=== PATIENT | male | born 1960 | race Caucasian/White ===

== ENCOUNTER → 2018-02-25 | Outpatient (CLI) | payer OTHER ==
[~2018-02-25] MED LIST: ALLEVE; CYC10 PO; KET10 PO; LOR5/325 PO
== END ==
LOC: LAB 14:11
DX: R97.20 Elevated prostate specific antigen [PSA] (principal)
CPT/HCPCS: 36415; 84153

== ENCOUNTER 2018-03-17 01:45 | Day surgery (SDC) | payer OTHER ==
[~2018-03-17] VITALS: Ht 190.5 cm; Wt 87.1 kg
[2018-03-17 08:02] LABS: PLATELET COUNT, AUTOMATED 312 K/uL (150-450)
[2018-03-17] MEDS ORDERED: fentaNYL CITR 100 MCG/2 ML AMP ONE (08:12)
[2018-03-17] MEDS ORDERED: LIDOCAINE MPF 1% 5 ML VIAL ONE (08:17)
[2018-03-17] MEDS ORDERED: PROPOFOL EMUL(*) 10MG/ML 20 ML 20 ML ONE (08:17)
[2018-03-17] MEDS ORDERED: DEXAMETHASONE SOD PHOS 10MG/ML ONE (08:17)
[2018-03-17] MEDS ORDERED: ONDANSETRON 4 MG/2 ML VIAL ONE (08:17)
[2018-03-17] MEDS ORDERED: KETAMINE HCL 500 MG/10 ML VIAL ONE (08:20)
[2018-03-17 08:31] VITALS: BP 127/83
[2018-03-17] MEDS ORDERED: FAMOTIDINE 20 MG TAB PO ONE (08:55)
[2018-03-17] MEDS ORDERED: GENTAMICIN(*) 80 MG/2 ML VIAL 160 MG in NS(*) 0.9% 100 ML BAG 100 ML IVPB ONE (08:55)
[2018-03-17] MEDS ORDERED: cefTRIAXone(*) 1 GM VIAL 1 GM in NS(*) 0.9% 100 ML ADDVANT BAG 100 ML IVPB ONE (08:55)
[2018-03-17] MEDS ORDERED: NORMOSOL R SOLN(*) 1000 ML BAG 1,000 ML IV PRN (08:55)
[2018-03-17] MEDS ORDERED: MIDAZOLAM 2 MG/2 ML VIAL IVP PRN (08:55)
[2018-03-17] MEDS ORDERED: LIDOCAINE/SOD BICARB 8.4% SYR ID ONE (08:55)
[2018-03-17] MEDS ORDERED: GENTAMICIN 80 MG/2 ML VIAL ONE (10:30)
[2018-03-17] MEDS ORDERED: ePHEDrine 25 MG/5 ML DISP.SYR IVP ONE (10:59)
[2018-03-17] MEDS ORDERED: FAMO20TA28 PO (12:09)
[2018-03-17] MEDS ORDERED: IBUP800T37 PO (12:10)
[2018-03-17] MEDS ORDERED: LEVO-85 PO (12:11)
[2018-03-17] MEDS ORDERED: HYDR-4308 PO (12:12)
--- NOTE | 2018-03-17 13:07 | RADIOLOGY IMAGING REPORT ---
FACILITY: [facility] [place] PATIENT NAME: Renny Box : 1960 MR: [id number] V: [id number] EXAM DATE: ORDERING PHYSICIAN: MARIA DEL CARMEN ARIZMENDI TECHNOLOGIST: Location: [facility] Patient: Renny Box : 1960 Visit/Account:[id number] Date of Sevice: 03/17/2018 Exam type: PROSTATE BIOPSY History: Elevated PSA Comparison: None. Findings: Prostate biopsy was performed by Dr. Arizmendi. Sonographic assistance was provided. Please see Dr. Paul perry's report for complete details IMPRESSION: 1. As above Report Dictated By: Ellie Shukla MD at 03/17/2018 1:02 PM Report E-Signed By: Ellie Shukla MD at 03/17/2018 1:03 PM WSN:[email or web address]
--- NOTE | 2018-03-18 04:32 | OPERATIVE REPORT 1 ---
EVENT DATE: March 17, 2018 SURGEON: Chencho Agustin MD ANESTHESIOLOGIST: Rakesh Carreno MD ANESTHESIA: General. PREOPERATIVE DIAGNOSES 1. Elevated prostatic specific antigen, etiology ?. 2. Abnormal prostate, left greater than right, etiology ?. POSTOPERATIVE DIAGNOSES 1. Elevated prostatic specific antigen, etiology ?. 2. Abnormal prostate, left greater than right, etiology ?. PROCEDURE PERFORMED 1. Prostate ultrasound. 2. Prostate biopsies x 14, transrectal. 3. Cystourethroscopy. 4. Hydrodistension of the bladder. DESCRIPTION OF PROCEDURE Under general anesthetic, the patient was prepped and draped in the extended lithotomy position. The prostate ultrasound was introduced transrectally. The prostate was scanned and measured a total of approximately 37 grams. There was some calculous prostatitis, mostly in the transitional zone area, possibly left greater than right. Possible small hypoechoic areas bilaterally in the mid lateral lobe areas. Biopsies were obtained from the base, mid and apical areas of the prostate bilaterally x two for a total of 12, then two extra samples were obtained from the mid mid areas of the prostate right and left for a total of 14 samples. The prostate ultrasound biopsies were completed. The probe was removed. Digital rectal examination revealed minimal blood in the rectal ampulla. Patient was prepped and draped in the extended lithotomy position. The 21 panendoscope admitted through the urethra into the bladder. The urethra was normal. Prostate showed trilobar hyperplasia with obstruction. Verumontanum was normal. Minimal inflammation of the prostatic urethra. Bladder showed 3-4+ trabeculation. Trigone and ureteral orifices were normal, no bloody efflux from either orifice. No other demonstrable bladder lesions. There were a few small clots that were evacuated. The bladder filled under gravity. Flow was measured to a total of 1000 mL. On drainage of the bladder, there was no bloody drainage. On reinspection of the bladder, there were no glomerulations. Bladder was drained. Scope was withdrawn. Patient tolerated the procedures satisfactorily and returned to the recovery room in satisfactory condition. INDICATION FOR PROCEDURE This is a 57-year-old while male complaining of elevated PSA of 4.49 in February 2018. Options were discussed with the patient. He was agreeable to further evaluation as to etiology of his elevated PSA. That has been accomplished, see operative note for details. DISCHARGE INSTRUCTIONS Patient will be ready for discharge home when alert and functional. Patient is to force fluids, 2 L per day. Activities are as tolerated. Plan followup Thursday, March 22, 2018. He is to call for an appointment. He is to continue his usual medications. Copy of instructions were given to the patient. Patient was discharged home on [place], Levaquin, Pepcid and Motrin therapy in addition to his usual medications. MTDD
== END 2018-03-17 12:40 | disposition home or self-care (01) ==
LOC: OR 01:45
DX: R97.20 Elevated prostate specific antigen [PSA] (principal)
CPT/HCPCS: 36415; 55700; 76942; 85025; 88305; 88344; J0696; J1100; J1580; J2001; J2704; J3010; J3490; J7050; 82310; 82374; 82435; 82565; 82947; 84132; 84295; 84520; J2405

== ENCOUNTER → 2018-03-25 | Outpatient (CLI) | payer OTHER ==
[~2018-03-25] MED LIST changes: +FAMO20TA28 PO; +HYDR-4308 PO; +IBUP800T37 PO; +LEVO-85 PO
--- NOTE | 2018-03-25 14:24 | RADIOLOGY IMAGING REPORT ---
FACILITY: [facility] PATIENT NAME: Renny Box : 1960 MR: [id number] V: [id number] EXAM DATE: ORDERING PHYSICIAN: MARIA DEL CARMEN ARIZMENDI TECHNOLOGIST: Location: [facility] [place] Patient: Renny Box : 1960 Visit/Account:[id number] Date of Sevice: 03/25/2018 WHOLE BODY BONE SCAN HISTORY: Prostate cancer TECHNIQUE: 25.8 mCi technetium 99m HDP was injected intravenously. Delayed anterior and posterior wh ole body gamma camera images were obtained. Additional gamma camera images: None. COMPARISON: None. FINDINGS: Bone radiotracer activity: Subtle focus of increased uptake within what appears to be the anterior n inth rib. No sites of abnormal uptake identified. Scattered degenerative changes including the shoulders, first toes, knees, and sternoclavicular joint s. Extraosseous radiotracer activity: Unremarkable. Renal and urinary collecting system activity: Unremarkable. IMPRESSION: 1. No definitive evidence for metastatic disease. 2. Subtle focus of increased uptake within an anterior right lower rib, likely the ninth rib. Recom mend correlation for possible rib fracture. Although metastasis is a possibility it is felt unlikely given no additional potential sites of disease. Report Dictated By: Bhaskar Azul MD at 03/25/2018 2:17 PM Report E-Signed By: Bhaskar Azul MD at 03/25/2018 2:20 PM WSN:[email or web address]
== END ==
LOC: CT 00:55
DX: C61 Malignant neoplasm of prostate (principal)
CPT/HCPCS: 78306; A9503

== ENCOUNTER → 2018-04-01 | Outpatient (CLI) | payer OTHER ==
[~2018-04-01] MED LIST changes: +IOPAMIDOL 76% 75 ML INFUS BTL 75 ML ONE
--- NOTE | 2018-04-01 10:15 | RADIOLOGY IMAGING REPORT ---
FACILITY: [facility] PATIENT NAME: Renny Box : 1960 MR: [id number] V: [id number] EXAM DATE: ORDERING PHYSICIAN: MARIA DEL CARMEN ARIZMENDI TECHNOLOGIST: Location: [facility] Patient: Renny Box : 1960 Visit/Account:[id number] Date of Sevice: 04/01/2018 ABDOMEN/PELVIS WITH CONTRAST HISTORY: Strip prostate cancer TECHNIQUE: Following administration of IV contrast contiguous axial images acquired through the abdom en/pelvis. Coronal and sagittal reformatting also performed. Dose Lowering Technique One of the following dose optimization techniques was utilized in the performance of this exam: Autom ated exposure control; adjustment of the mA and/or kV according to the patient's size; or use of an i terative reconstruction technique. Specific details can be referenced in the facility's radiology C T exam operational policy. CONTRAST: 75 mL Isovue-370 COMPARISON: None. FINDINGS: Visualized lung bases: Negative. Hepatobiliary: Negative. Spleen: Negative. Adrenals: Negative. Pancreas: Negative. Kidneys ureters or bladder: Kidneys appear unremarkable. Bladder wall is moderately thickened althou gh could be related to underdistention with urine Genitalia: Prostate gland is moderately enlarged, diffusely heterogeneous and impinges upon the floo r the bladder GI: Negative. Vessels/spaces/nodes: Negative. Bones/soft tissues: There are moderate spondylotic changes of the lower lumbar spine. No aggressive appearing bone lesions are seen Additional findings: None pertinent. IMPRESSION: Prostate gland is moderately enlarged and diffusely heterogeneous impinging upon the floor the bladde r No aggressive appearing bone lesions are seen Report Dictated By: Ellie Shukla MD at 04/01/2018 9:41 AM Report E-Signed By: Ellie Shukla MD at 04/01/2018 10:12 AM MARIANAN:TRACI
== END ==
LOC: CT 02:03
DX: M47.896 Other spondylosis, lumbar region (principal); C61 Malignant neoplasm of prostate
CPT/HCPCS: 74177; Q9967

== ENCOUNTER 2018-04-12 12:29 | Outpatient (RCR) | payer OTHER ==
[~2018-04-12 12:29] MED LIST changes: -IOPAMIDOL 76% 75 ML INFUS BTL 75 ML ONE
[2018-04-18] MEDS ORDERED: MULT-1335 PO (12:03)
== END 2018-04-19 12:04 | disposition home or self-care (01) ==
LOC: RAON 12:29
PROVIDERS: ATTEND Radiology Radiation Oncology
DX: C61 Malignant neoplasm of prostate (principal); Z87.891 Personal history of nicotine dependence
CPT/HCPCS: 99202

== ENCOUNTER 2018-06-21 14:19 | Outpatient (RCR) | payer OTHER ==
[2018-06-17 15:17] VITALS: BP 124/86
[~2018-06-21 14:19] MED LIST changes: -HYDR-4308 PO; +HYDR-654 PO; +MULT-1335 PO
[2018-08-09] MEDS ORDERED: ZOLP-350 PO (10:49)
[2018-08-09] MEDS ORDERED: TAMS0.4C25 PO (10:49)
== END 2018-09-18 ==
LOC: RAON 14:19
PROVIDERS: ATTEND Radiology Radiation Oncology
DX: C61 Malignant neoplasm of prostate (principal); Z87.891 Personal history of nicotine dependence
CPT/HCPCS: 36415; 77280; 77300; 77301; 77338; 84153; 99212

== ENCOUNTER 2018-08-23 08:51 | Outpatient (RCR) | payer OTHER ==
[~2018-08-23 08:51] MED LIST changes: +TAMS0.4C25 PO; +ZOLP-350 PO
== END 2018-09-26 ==
LOC: RAON 08:51
PROVIDERS: ATTEND Radiology Radiation Oncology
DX: Z51.0 Encounter for antineoplastic radiation therapy (principal); C61 Malignant neoplasm of prostate; Z87.891 Personal history of nicotine dependence
CPT/HCPCS: 77280; 77290; 77300; 77301; 77336; 77338; 77385

== ENCOUNTER 2019-02-06 08:00 | Outpatient (RCR) | payer OTHER ==
[2018-11-09 11:50] LABS: PLATELET COUNT, AUTOMATED 288 K/uL (150-450)
[2018-11-09 12:27] VITALS: BP 117/79
--- NOTE | 2018-11-10 15:25 | ONCOLOGY FOLLOW UP NOTE ---
EVENT DATE: November 10, 2018 DIAGNOSIS AND ONCOLOGY TREATMENT HISTORY Prostate adenocarcinoma, [place] pattern 6, four of 12 cores positive, pre- treatment PSA 4.5. The patient completed external beam radiotherapy as a definitive treatment in August 2018. INTERVAL HISTORY The patient presents today for followup after recently completing external beam radiotherapy as a definitive treatment for his low-risk prostate adenocarcinoma. On presentation today, the patient states that he overall feels well. The patient has no diarrhea. He has urinary frequency, but denies significant urgency, dysuria, or nocturia. The patient has no hematuria or bright red blood per rectum. The patient's PSA on November 09, 2018, was 2.3 ng/mL. PAST MEDICAL HISTORY Arthritis. MEDICATIONS Multivitamin. ALLERGIES No known drug allergies. SOCIAL HISTORY Patient is a former smoker, drinks occasionally. He works on the railroad. FAMILY HISTORY Father had a history of prostate cancer. PHYSICAL EXAMINATION VITAL SIGNS: Temperature 97.2, pulse 78, blood pressure 128/75, respiratory rate 16, O2 saturation is 96% on room air. CONSTITUTIONAL/GENERAL APPEARANCE: Patient is sitting comfortably in a chair. No acute distress. HEENT: Pupils equal, round, and reactive to light and accommodation. Extraocular movement are intact. There are no lesions in the oropharynx. NECK: Supple. Trachea midline. LYMPHATIC SURVEY: No palpable supraclavicular lymphadenopathy bilaterally. LUNGS: Clear to auscultation and percussion bilaterally. CARDIOVASCULAR: Regular rate and rhythm. Normal S1 and S2. No murmurs, rubs, or gallops. ABDOMEN: Soft, nontender, with active bowel sounds. No hepatosplenomegaly. EXTREMITIES: No edema, clubbing, or cyanosis. NEUROLOGIC: The patient is alert and oriented times three. Motor strength is 5/5 in upper and lower extremities bilaterally. PERFORMANCE STATUS: 100% IMPRESSION Low-risk prostate adenocarcinoma, status post external beam radiotherapy as a definitive treatment. The patient has declining PSA. The patient has satisfactory urinary and gastrointestinal function. PLAN The patient will follow up with Radiation Oncology in three months with a repeat PSA. [facility]
[2019-02-06 16:06] VITALS: BP 133/85
[2019-02-06 16:20] LABS: PLATELET COUNT, AUTOMATED 337 K/uL (150-450)
== END 2019-02-07 ==
LOC: SPU 08:00
PROVIDERS: ATTEND Radiology Radiation Oncology
DX: C61 Malignant neoplasm of prostate (principal); Z87.891 Personal history of nicotine dependence
CPT/HCPCS: 36415; 82040; 82247; 82310; 82374; 82435; 82565; 82947; 84075; 84132; 84153; 84155; 84295; 84450; 84460; 84520; 85025

== ENCOUNTER 2019-05-09 15:54 | Outpatient (RCR) | payer OTHER ==
--- NOTE | 2019-02-10 22:19 | ONCOLOGY FOLLOW UP NOTE ---
EVENT DATE: February 10, 2019 CHIEF COMPLAINT/REASON FOR VISIT Patient is here to review his updated PSA with symptom management. Known history of prostate carcinoma, treated with external beam radiotherapy. Definitive treatment 08/28. INTERVAL HISTORY Mr. Box was back in the office for followup appointment. Since his last appointment, he has had left shoulder surgery and recovered very nicely. He is finishing up his physical therapy at this time. Apparently, he had torn a biceps tendon. Voiding function is stable, no dysuria, excellent control. He is bothered periodically by hemorrhoids and perianal pruritus. I gave him some prescriptions for symptom management today, listed below. PSA continues to fall at each interval. His PSA has now dropped to 1.46 ng/mL on 02/06/19, progressive decline since treatment, falling a full point on each three-month interval. I would expect the noemi to be reached sometime in the next six to 12 months. His PSA was 4.49 last February. Patient states he is sexually active. He does use Cialis on a p.r.n. basis. Denies any new or persistent bone pain. PAST MEDICAL HISTORY 1. Prostate cancer. 2. DJD. MEDICATIONS MVI. SOCIAL HISTORY Patient works on the [employer]. 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 Former smoker. Social alcohol use. FAMILY HISTORY Notable for prostate carcinoma. See prior notes. COMPREHENSIVE REVIEW OF SYSTEMS Normal with the exception of the pruritus. Denies any rectal bleeding. PHYSICAL EXAMINATION GENERAL: Pleasant 58-year-old male. VITAL SIGNS: Weight 194. BP 130/77, pulse 78, O2 sat 94%. LUNGS: Clear bilaterally. LYMPHATICS: No lymphadenopathy. ABDOMEN: Soft. No gross organomegaly. HEART: Sounds regular. RECTAL: Prostate is flattening nicely as expected at this time. No tenderness noted. No external hemorrhoids appreciated or any rectal bleeding. He does have some perianal dry skin. EXTREMITIES: No edema or cyanosis. Excellent range of motion following his recent surgery. NEUROLOGIC: Intact. IMPRESSION Patient has responded nicely to the radiation therapy course with no adverse effects and excellent therapeutic response. So far, he has achieved his goals of maintaining sexual activity as well as keeping the PSA under control. PLAN For the perianal pruritus, he will try Anusol HC 2.5% b.i.d. for a week. If unsuccessful, try triamcinolone cream 1% b.i.d. for 10 days. Plan repeat PSA in three months as we attempt to reach the noemi in year one and then go to q.6 to 12 months surveillance following that. All questions answered to the patient's satisfaction over a 40-minute followup appointment today. LENIN
[2019-05-05 08:12] VITALS: BP 130/79
[~2019-05-09 15:54] MED LIST changes: +HYDR25SU51 RC; +TRIA15CR40 TP
[2019-05-09 16:05] VITALS: BP 137/89
--- NOTE | 2019-05-09 18:51 | ONCOLOGY FOLLOW UP NOTE ---
EVENT DATE: May 09, 2019 CHIEF COMPLAINT/REASON FOR VISIT Adenocarcinoma of the prostate. Patient is here to go over updated PSA. He received external beam radiation therapy with history elicited below. ONCOLOGY HISTORY 1. [place] 3 + 3 = 6 adenocarcinoma of the prostate occupying four of 12 core biopsies on prostate biopsy 03/17/18 with ultrasound. Tumor occupied 70% of the left lateral middle biopsy and 5% of the right lateral base and 20% of the left lateral apex. 2. Completion of external beam radiation therapy 08/24/18. INTERVAL HISTORY Mr. Box was seen for a followup appointment, clinically doing well. Denies any specific health complaints, although he did want me to check a small lesion over the face to rule out skin carcinoma. The patient states his voiding function is close to normal, gets up twice at night. He does drink a fair amount of fluids. He denies any new or persistent bone pain. No bowel complaints. PSA continues to fall after therapy. PSA has dropped from 4.49 ng/mL in February of last year to 0.88 ng/mL post treatment, progressive decline which is on schedule. MEDICATIONS None. ALLERGIES None. PAST MEDICAL HISTORY 1. Prostate carcinoma. 2. DJD. SOCIAL HISTORY Patient works on the [employer]. Former smoker. Social alcohol use. FAMILY HISTORY Notable for father with prostate carcinoma in his mid 60s. COMPREHENSIVE SYSTEM REVIEW Notable for slight decrease in hearing which is not new, skin lesion which has been present for two to three weeks. Otherwise unremarkable. PHYSICAL EXAMINATION GENERAL: Pleasant 58-year-old gentleman of medium build. VITAL SIGNS: BP 137/89, pulse 73, respirations 16, O2 sat 93% on room air. Weight 202. HEENT: Unremarkable with the exception small, 3 to 4 mm lesion over the skin just inside his mustache on the right side. There is a small, 3 to 6 mm black eschar which is not consistent with melanoma. There is a small mucosal keratosis just above the lesion which measures only 2 to 3 mm. NECK: No palpable lymphadenopathy of the neck. Benign nevus noted on the base of the left neck. LUNGS: Clear bilaterally. HEART: Sounds regular. ABDOMEN: Soft. No gross organomegaly, mass, or tenderness. EXTREMITIES: No edema or cyanosis. RECTAL: Deferred due to normal PSA. NEUROLOGIC: Intact. IMPRESSION A 58-year-old gentleman who was recently treated with external beam radiotherapy for adenocarcinoma of the prostate. He is doing exceptionally well, and his PSA is falling on schedule with a progressive decline since treatment. Patient informs me that he and his are sexually active, and they are very happy with their sex life at this time, and he is happy with his treatment selection. PLAN All questions were answered to his satisfaction over a 40-minute followup visit today, greater than 35 minutes spent face to face with the patient for examination and counseling. The lesion over the skin on the face is most likely benign; however, the patient was instructed to follow up with Dr. Rosales if the lesion is not completely healed within the next eight weeks. Overall, I am pleased with the patient's course to date. I will continue to monitor the PSA in a regular fashion. He has an appointment in three months to look for the noemi, at which point we will then go to a q.6-month surveillance. LENIN
== END 2019-05-10 ==
LOC: RAON 15:54
PROVIDERS: ATTEND Radiology Radiation Oncology
DX: C61 Malignant neoplasm of prostate (principal)
CPT/HCPCS: 36415; 84153